=== PATIENT | female | born 1950 | race Caucasian/White ===

== ENCOUNTER 2021-10-26 12:00 | Emergency (ER) | payer MEDICARE, OTHER ==
[2021-10-26] MEDS ORDERED: Sodium Chloride 0.9% 2.5 ML Syringe FLUSH PRN (12:09)
[2021-10-26] MEDS ORDERED: Sodium Chloride 0.9% 10 ML Syringe FLUSH PRN (12:09)
[2021-10-26 13:22] LABS: POTASSIUM,K 4.3 mmol/L (3.5-5.1)
[2021-10-26] MEDS ORDERED: Iopamidol 755 MG/ML 500 ML Multipack Bottle IVPUSH STA (14:27)
[2021-10-26] MEDS ORDERED: Pantoprazole 80 MG in Sodium Chloride 0.9% 10 ML IVPUSH ONE (14:50)
[2021-10-26] MEDS ORDERED: Ondansetron 4 MG/2 ML SDV IVPUSH ONE (14:51)
== END 2021-10-26 16:24 | disposition home or self-care (01) ==
LOC: MW.ED 12:00
DX: K62.5 Hemorrhage of anus and rectum (principal); K57.30 Diverticulosis of large intestine without perforation or abscess without bleeding; Z79.899 Other long term (current) drug therapy; Z91.041 Radiographic dye allergy status; Z88.8 Allergy status to other drugs, medicaments and biological substances
CPT/HCPCS: 36415; 74177; 80053; 81003; 83690; 84484; 85025; 85610; 93005; 96374; 96375; 99284; C9113; J2405; J3490; Q9967

== ENCOUNTER 2021-11-30 09:51 | Day surgery (SDC) | payer MEDICARE, OTHER ==
[~2021-11-30 09:51] MED LIST: Lactated Ringers 1,000 ML IV SCH; propofoL 50 ML ONE
[2021-11-30] MEDS ORDERED: Lidocaine 2% 5 ML SDV ONE (10:58)
== END 2021-11-30 12:25 | disposition home or self-care (01) ==
LOC: MW.SDS 09:51
PROVIDERS: ATTEND Surgery
DX: D12.2 Benign neoplasm of ascending colon (principal); K57.30 Diverticulosis of large intestine without perforation or abscess without bleeding; K21.9 Gastro-esophageal reflux disease without esophagitis; Z88.8 Allergy status to other drugs, medicaments and biological substances; Z80.0 Family history of malignant neoplasm of digestive organs; Z91.041 Radiographic dye allergy status; Z79.899 Other long term (current) drug therapy; Z98.890 Other specified postprocedural states
CPT/HCPCS: J2704; J7120